=== PATIENT | male | born 1940 | race Caucasian/White ===

== ENCOUNTER → 2021-12-19 | Outpatient (CLI) | payer MEDICARE, OTHER ==
[2021-12-19 11:10] LABS: HEMATOCRIT 41 % (40-54); HEMOGLOBIN 13.9 g/dL (13.3-17.7); MEAN CORPUSCULAR HEMOGLOBIN 32 pg (25-34); MEAN CORPUSCULAR HGB CONC 34 g/dL (32-36); MEAN CORPUSCULAR VOLUME 94 fL (80-99); MEAN PLATELET VOLUME 8.7 fL (9.0-12.2); PLATELET COUNT 194 10^3/uL (130-400); WHITE BLOOD COUNT 5.9 10^3/uL (4.3-11.0)
[2021-12-19 11:28] LABS: ALBUMIN 3.8 GM/DL (3.2-4.5); BILIRUBIN,TOTAL 1.2 MG/DL (0.1-1.0); CALCIUM 9.3 MG/DL (8.5-10.1); CREATININE SERUM 1.4 MG/DL (0.60-1.30); POTASSIUM 3.5 MMOL/L (3.6-5.0)
[2021-12-19 15:40] LABS: BASOPHILS # (AUTO) 0.1 10^3/uL (0.0-0.1); BASOPHILS % (AUTO) 1 % (0-10); EOSINOPHILS # (AUTO) 0.2 10^3/uL (0.0-0.3); EOSINOPHILS % (AUTO) 4 % (0-10); LYMPHOCYTES # (AUTO) 1.4 10^3/uL (1.0-4.0); LYMPHOCYTES % (AUTO) 23 % (12-44); MONOCYTES # (AUTO) 0.6 10^3/uL (0.0-1.0); MONOCYTES % (AUTO) 11 % (0-12); NEUTROPHILS # (AUTO) 3.6 10^3/uL (1.8-7.8); NEUTROPHILS % (AUTO) 60 % (42-75)
[2021-12-19 16:26] LABS: EOSINOPHILS % (MANUAL) 3 %; LYMPHOCYTES % (MANUAL) 22 %; MONOCYTES % (MANUAL) 9 %; NEUTROPHILS % (MANUAL) 66 %; RBC MORPH NORMAL
== END ==
LOC: LAB 10:53
PROVIDERS: ATTEND Internal Medicine Cardiovascular Disease
DX: I35.1 Nonrheumatic aortic (valve) insufficiency (principal); Z79.899 Other long term (current) drug therapy
CPT/HCPCS: 36415; 80053; 83880; 84443; 85007; 85027

== ENCOUNTER → 2021-12-26 | Outpatient (CLI) | payer MEDICARE, OTHER | LOC: CARDFS 11:37 | PROVIDERS: ATTEND Internal Medicine Cardiovascular Disease | DX: I35.1 Nonrheumatic aortic (valve) insufficiency (principal); Z79.899 Other long term (current) drug therapy | CPT/HCPCS: 93306 ==

== ENCOUNTER → 2022-10-22 | Outpatient (CLI) | payer MEDICARE, OTHER ==
[2022-10-22] MEDS: CATHETER FLUSH 10 ML SYR IVP PRN ×2 (12:11→12:12)
[2022-10-22 13:18] VITALS: BP 162/71
[2022-10-22 13:22] VITALS: BP 187/79
--- NOTE | 2022-10-22 15:56 | Cardiology Stress Test Report ---
Stress Test Report Date of Procedure/Referring: Date of Procedure: Oct 22, 2022 PCP Carlos Cary MD Admitting Physician Admitting Physician: Attending Physician: Mercedez Lloyd MD Baseline Heart Rate: 81 Baseline Blood Pressure: Blood Pressure Systolic: 187 Blood Pressure Diastolic: 79 Vital Signs Date Time Temp Pulse Resp B/P (MAP) Pulse Ox O2 Delivery O2 Flow Rate FiO2 10/22/22 13:18 100 162/71 (101) Baseline Vital Signs Vital Signs Date Time Temp Pulse Resp B/P (MAP) Pulse Ox O2 Delivery O2 Flow Rate FiO2 10/22/22 13:18 100 162/71 (101) Baseline EKG: Baseline EKG: NSR Summary: After explaining the procedure and details to the patient, he signed the consent and was brought to the stress nuclear laboratory. Patient exercised on standard Rick protocol, EKG, heart rate and blood pressure were monitored continuously, resting and stress doses of radio tracer were injected, imaging was acquired and reviewed in the short axis, horizontal long axis and vertical long axis views Patient was able to exercise for a total of 4.30 minutes on Rick protocol, METs 6.4 Maximum heart rate 131 Maximum blood pressure 187/79 Stress EKG, Minimal nondiagnostic changes Recovery EKG, Return to baseline TID: 1 SSS: 9 SDS: 3 EF: 45 Conclusion: Fair exercise tolerance for 4 minutes and 30 seconds on standard Rick protocol, 6.4 METS achieving 94% of maximal expected heart rate Appropriate heart rate response to exercise with hypertensive response to exercise with peak blood pressure 187/79 return to baseline during recovery Nondiagnostic EKG changes with exercise return to baseline during recovery Reversible ischemia involving the mid to apical anterolateral and mid to apical inferolateral wall Normal left ventricular size, ejection fraction 45% Copy Copies To 1: CARLOS CARY MD, BASHAR J MD Oct 22, 2022 15:56
== END ==
LOC: CARD 11:53
PROVIDERS: ATTEND Internal Medicine Cardiovascular Disease
DX: R07.9 Chest pain, unspecified (principal); R00.2 Palpitations
CPT/HCPCS: 78452; 93017; A9502

== ENCOUNTER 2022-11-05 07:53 | Day surgery (SDC) | payer MEDICARE, OTHER ==
[~2022-11-05] VITALS: Ht 176.7 cm; Wt 95.3 kg
[2022-11-05] VITALS (11 sets, daily range): BP systolic 116–175; BP diastolic 61–89
[2022-11-05] MEDS ORDERED: HEParin (CATH LAB) 2,000 ML IV ONE (08:00)
[2022-11-05] MEDS ORDERED: LIDOCAINE 1% INJ 20 ML VIAL ONE (08:00)
[2022-11-05] MEDS ORDERED: NS IV 1000 ML 1,000 ML ONE (08:00)
[2022-11-05] MEDS ORDERED: NS IV 1000 ML 1,000 ML IV SCH ×3 (08:00→11:45)
[2022-11-05 08:41] LABS: HEMATOCRIT 42 % (40-54); MEAN CORPUSCULAR HEMOGLOBIN 32 pg (25-34); MEAN CORPUSCULAR HGB CONC 33 g/dL (32-36); MEAN CORPUSCULAR VOLUME 96 fL (80-99); MEAN PLATELET VOLUME 9.3 fL (9.0-12.2); PLATELET COUNT 182 10^3/uL (130-400); WHITE BLOOD COUNT 7.7 10^3/uL (4.3-11.0)
--- NOTE | 2022-11-05 08:47 | Diagnostic Imaging Report ---
INDICATION: Heart disease. No prior examinations are available for comparison. FINDINGS: There is cardiomegaly. There is no pleural effusion or pneumothorax. The mediastinum is unremarkable. There is calcified granuloma in the right lung. IMPRESSION: No acute cardiopulmonary abnormality Cardiomegaly Dictated by: Dictated on workstation # [id number]
[2022-11-05 08:52] LABS: PROTHROMBIN TIME PATIENT 13.2 SEC (12.2-14.7)
[2022-11-05] MEDS ORDERED: AMLO-251 PO (08:57)
[2022-11-05] MEDS ORDERED: KETO120S13 TP (08:57)
[2022-11-05] MEDS ORDERED: POTA-177 PO (08:57)
[2022-11-05] MEDS ORDERED: PRED5DRO24 OP (08:57)
[2022-11-05] MEDS ORDERED: LEVO75CA5 PO (08:57)
[2022-11-05] MEDS ORDERED: KRIL500C PO (08:57)
[2022-11-05] MEDS ORDERED: LOSA50TA63 PO ×2 (08:57)
[2022-11-05] MEDS ORDERED: ATOR10TA66 PO (08:57)
[2022-11-05] MEDS ORDERED: PSYL575P4 PO (08:57)
[2022-11-05] MEDS ORDERED: ASPI-1238 PO (08:57)
[2022-11-05 09:02] LABS: ALBUMIN 4.2 GM/DL (3.2-4.5); BILIRUBIN,TOTAL 1.5 MG/DL (0.1-1.0); CREATININE SERUM 1.31 MG/DL (0.60-1.30); POTASSIUM 3.8 MMOL/L (3.6-5.0); TOTAL PROTEIN 7.1 GM/DL (6.4-8.2)
--- NOTE | 2022-11-05 10:43 | Cardiac Procedure Note-CS/ASA ---
Pre-Procedure Note Pre-Op Procedure Note Date of Available H&P: Oct 24, 2022 Date H&P Reviewed: Nov 05, 2022 Time H&P Reviewed: 10:42 History & Physical: H&P Reviewed, Patient Examed, No changes noted Pre-Operative Diagnosis: PAD Moderate Sedation PreProcedure Time 10:43 ASA Score 3 Airway Lungs Heart ASA score ASA 1: a normal healthy patient ASA 2: a patient with a mild systemic disease (mid diabetes, controlled hypertension, obesity ASA 3: a patient with a severe systemic disease that limits activity (angina, COPD, prior Myocardial infarction) ASA 4: a patient with an incapacitating disease that is a constant threat to life (CHF, renal failure) ASA 5: a moribund patient not expected to survive 24 hrs. (ruptured aneurysm) ASA 6: a declared brain- patient whose organs are being harvested. For emergent operations, add the letter E after the classification Mallampati Classification Grade 3 Sedation Plan Analgesia, Amnesia, Plan communicated to team members, Discussed options with patient/fam, Discussed risks with patient/fam The patient is an appropriate candidate to undergo the planned procedure, sedation, and anesthesia. The patient immediately re-assessed prior to indication. KAROL RAMÍREZ MD Nov 05, 2022 10:43
[2022-11-05] MEDS ORDERED: VERAPAMIL 5 MG/2 ML (CALAN) VIAL IV ONE (10:46)
[2022-11-05] MEDS ORDERED: HEParin 1000 UNIT/ML (10ML VIAL) FOR BOLUS ONE (10:46)
[2022-11-05] MEDS ORDERED: MIDAZOLAM INJ 5 MG/5 ML VIAL ONE (10:46)
[2022-11-05] MEDS ORDERED: fentaNYL INJECTION 100 MCG/2 ML VIAL ONE (10:46)
[2022-11-05] MEDS ORDERED: NITRO DRIP 25000 MCG/D5W 250 ML IV ONE (10:46)
--- NOTE | 2022-11-05 11:37 | Discharge Inst-Post CATH ---
Discharge Inst-CATH/EP Problems Reviewed?: Yes Post Cardiac Cath/EP D/C Inst Follow Up/Plan Appointment with Dr. Lloyd's office in 2 to 4 weeks <b>CARDIAC CATH/EP PROCEDURE DISCHARGE INSTRUCTIONS</b> ACTIVITY * Go Home directly and rest. * Limit activity of the leg (or wrist if it was used) for 7 days including aer obics, swimming, jogging, bicycling, etc. * Restrict stair-climbing for 7 days if possible, if not, climb up with your non-cath leg, then bring together on the same step. * Avoid lifting, pushing, pulling or excessive movement of the affected extremi ty for 7 days. * Customary sexual activity may be resumed after 2 days-use caution not to use a position that strains or causes pain to the affected extremity. * No driving for 24 hours. * NO SMOKING. * Avoid straining for bowel movements for 7 days. * Gentle walking on level ground is allowed. * Returning to work will depend on the type of procedure and the results. Your doctor will discuss this with you. CALL YOUR DOCTOR FOR ANY OF THE FOLLOWING: *If bleeding from the puncture site occurs- Apply gentle pressure to site with clean cloth and call your doctor or EMS. * If a knot or lump forms under the skin, increases in size, or causes pain. * If bruising appears to be worsening or moving further down your leg instead of disappearing. * Temperature above 101 F. CARE OF YOUR GROIN INCISION; * Bruising or purple discoloration of the skin near the puncture site is common. * You may shower only, no bathtub bathing for 5 days. Be careful to avoid slipping as your leg may feel stiff. * If a closure device was used on your femoral artery, please see the attached guide regarding care of the device and your leg. * Leave dressing on FOR 24 hours. CARE OF YOUR WRIST INCISION; * Bruising or purple discoloration of the skin near the puncture site is common. * You may shower. * DO NOT submerge wrist. * Leave dressing on FOR 24 hours. KAROL LLOYD MD Nov 05, 2022 11:37
--- NOTE | 2022-11-05 11:42 | Cardiac Cath Report ---
Cardiac Cath Report Physician (s)/Clinical Psychology Professor (s) Physician KAROL RAMÍREZ MD Pre-Procedure Diagnosis Pre-Procedure Diagnosis: Coronary artery disease Post-Procedure Note Procedure Start Date: Nov 05, 2022 Name of Procedure: Left heart catheterization Aortic arch angiogram Findings/Procedure Note PROCEDURE NOTE: 81-year-old gentleman with history of hypertension, hyperlipidemia, had an abnormal stress test, scheduled for cardiac catheterization possible PTCA. After explaining the procedure to the patient, all pros and cons were explained, all questions were answered. The patient signed the consent and then he was placed in the cardiac catheterization laboratory. Groin was prepped in SL fashion local anesthesia was used. Sheath placed in the right radial artery, I was unable to advance the wire through the brachial artery due to significant tortuosity I tried baby J-wire without success subsequently I decided to abort and proceeded with a groin attempt, 6 Salvadorean sheath was placed in the right femoral artery. Leah' right and left catheter were used to access the coronary system. Pigtail was used to access the left ventricular cavity. Left ventriculogram was not done, pressure was measured Aortic arch angiogram was done due to the heavy calcification in the aortic arch that was noted At the end of the procedure the sheath was removed. Vascular band was used in the wrist and manual pressure applied to the groin FINDINGS: Hemodynamics LV 120/14, end-diastolic pressure of 14 Aorta 126/62 mean of 90 ANATOMY: Left Main is free of obstructive disease Left Anterior Descending is moderate in size with mild ectasia nonobstructive disease Left Circumflex is dominant artery with diffuse ectasia nonobstructive disease Right Coronary Artery is a small nondominant artery with no obstructive disease LV Gram was not done, pressure was measured Aorta evaluation done with aortic arch angiogram showed calcified aortic arch, slightly prominent, no dissection or aneurysm, tortuous brachiocephalic artery with origin of the left carotid off the brachiocephalic artery. Left subclavian artery is normal CONCLUSION: Dominant circumflex artery with diffuse ectasia in the left coronary system, nonobstructive disease Nondominant right coronary artery with no obstructive disease Normal left ventricular end-diastolic pressure Calcified aortic arch with no dissection or aneurysm, tortuous brachiocephalic trunk Unable to perform catheterization through radial access due to heavy tortuosity in the brachial artery DISCUSSION AND RECOMMENDATION: Continue with medical therapy no intervention is warranted Anesthesia Type: Conscious Sedation Estimated blood loss (mL): 15 ml Contrast Amount: 40 ml Total Radiation Dose: 549 mGy Post-Procedure Diagnosis Post-operative diagnosis: Chest pain Coronary artery disease Peripheral arterial disease Hypertension KAROL RAMÍREZ MD Nov 05, 2022 11:42
[2022-11-05] MEDS ORDERED: PATIENT MAY USE OWN MEDS, ALL PO SCH (11:45)
== END 2022-11-05 17:10 ==
LOC: CATH 07:53 → SDC 12:44 → CATH 17:10
PROVIDERS: ATTEND Internal Medicine Cardiovascular Disease
DX: I25.10 Atherosclerotic heart disease of native coronary artery without angina pectoris (principal); E78.2 Mixed hyperlipidemia; I73.9 Peripheral vascular disease, unspecified; I10 Essential (primary) hypertension; I65.23 Occlusion and stenosis of bilateral carotid arteries; I35.1 Nonrheumatic aortic (valve) insufficiency; Z79.82 Long term (current) use of aspirin; Z79.899 Other long term (current) drug therapy
CPT/HCPCS: 36221; 71045; 80053; 80061; 85027; 85610; 85730; 87081; 93005; 93458; C1769; C1894 ×2; 36415